=== PATIENT | male | born 1955 | race Caucasian/White ===

== ENCOUNTER → 2016-12-30 | Outpatient (CLI) | payer OTHER ==
[~2016-12-30] MED LIST: ASP81CT PO; CEPH-507 PO; HYDR-3874 PO; MULT-963 PO; OMG1KC PO; RUTI1TAB PO
--- NOTE | 2016-12-30 16:24 | Diagnostic Imaging Report ---
Scrotal ultrasound. INDICATION: Right scrotal swelling and pain. FINDINGS: The right testicle is 4.5 x 3.1 x 3 cm. The left testicle is 4.2 x 2.2 x 2.5 cm. There is a vsyxqnys-vc-subpd right hydrocele with mild debris seen. Arterial waveforms are demonstrated over both testicles. There is slightly more prominent vascularity demonstrated with color Doppler over the right testicle. IMPRESSION: Htfrzkps-bw-tlvrt right-sided hydrocele with minimally prominent vascularity in the right testicle raising question of right-sided orchitis. There is no abscess. No solid mass. Dictated by: Dictated on workstation # [id number]
== END ==
LOC: RAD 10:02
PROVIDERS: ATTEND Nurse Practitioner
DX: N43.3 Hydrocele, unspecified (principal)
CPT/HCPCS: 76870

== ENCOUNTER 2017-02-03 08:22 | Outpatient (CLI) | payer OTHER ==
[~2017-02-03] VITALS: Ht 172.7 cm; Wt 81.6 kg
[~2017-02-03 08:22] MED LIST changes: -CEPH-507 PO; -HYDR-3874 PO; -RUTI1TAB PO
[2017-02-03] MEDS ORDERED: RUTI1TAB PO (09:28)
== END 2017-02-03 09:31 ==
LOC: PREOP 08:22
PROVIDERS: ATTEND Urology
DX: Z01.818 Encounter for other preprocedural examination (principal); N43.3 Hydrocele, unspecified; N45.2 Orchitis

== ENCOUNTER 2017-02-07 06:31 | Day surgery (SDC) | payer OTHER ==
[~2017-02-07] VITALS: Ht 172.7 cm; Wt 81.6 kg
[~2017-02-07 06:31] MED LIST changes: +RUTI1TAB PO
[2017-02-07 07:35] VITALS: BP 151/78
[2017-02-07] MEDS ORDERED: LACTATED RINGERS 1,000 ML IV ONE (07:35)
[2017-02-07] MEDS ORDERED: ceFAZolin 1 GM/NS 50 ML IVPB IV ONE ×2 (07:45)
[2017-02-07] MEDS ORDERED: NEOSPORIN + PAIN RELIEF CREAM 15 GM ONE (07:58)
[2017-02-07] MEDS ORDERED: MIDAZOLAM 2 MG/2 ML (VERSED) VIAL ONE (08:05)
[2017-02-07] MEDS ORDERED: fentaNYL INJECTION 100 MCG/2 ML AMP ONE ×2 (08:05→09:43)
--- NOTE | 2017-02-07 08:05 | Progress Note-Pre Operative ---
Pre-Operative Progress Note H&P Reviewed The H&P was reviewed, patient examined and no changes noted. Date H&P Reviewed: February 07, 2017 Time H&P Reviewed: 08:05 Pre-Operative Diagnosis: RT CHRONIC RECUREENT EPIDIDYMOORCHITIS VERONICA SANABRIA MD February 07, 2017 8:05 am
--- NOTE | 2017-02-07 08:06 | Progress Note-Post Operative ---
Post-Operative Progess Note Surgeon (s)/Spray Painter (s) Surgeon VERONICA SANABRIA MD Spray Painter: N/A Pre-Operative Diagnosis RT CHRONIC RECUREENT EPIDIDYMOORCHITIS AND RT HYDROCELE Post-Operative Diagnosis SAME Post-Op Procedure Note Date of Procedure: February 07, 2017 Name of Procedure Performed: RT ORCHIECTOMY Description of the Procedure: PER DICTATION Findings of the Procedure SAME Anesthesia Type GENERAL Estimated blood loss (mL): LESS THAN 30CC Packing: TIFFANIE DRAIN /# Specimen(s) collected/removed RT TESTIS AND EPIDIDYMIS VERONICA SANABRIA MD February 07, 2017 8:06 am
--- NOTE | 2017-02-07 08:09 | Discharge Inst-Urology ---
Discharge Inst-Urology Discharge Medications New, Converted, or Re-newed RX: RX on Chart Patient Instructions/Follow Up Plan Please make appointment to been seen in office in 2 weeks. Rest till then. to DC Drain tomorrow 9am if no bleeding, call office PRN Tomorrow, may start showers, no bath Next Monday, if no bleeding, may resume ASA Keep bowels soft and moving Ice to scrotum in RR and at home for 6hrs and then PRN Increase oral fluids for 48 hours and then as needed. Diet and Activity as tolerated. If questions or concerns contact your physician Or seek help at emergency department. VERONICA SANABRIA MD February 07, 2017 8:09 am
[2017-02-07] MEDS ORDERED: LACTATED RINGERS 0 ML IV ONE (08:20)
[2017-02-07] MEDS ORDERED: DEXAMETHASONE PF 10 MG/ML (DECADRON) VIAL ONE (08:20)
[2017-02-07] MEDS ORDERED: proPOfol 200 MG/20 ML (DIPRIVAN) VIAL IV ONE (08:20)
[2017-02-07] MEDS ORDERED: ONDANSETRON 4 MG/2 ML (SDV) Z0FRAN ONE (08:20)
[2017-02-07] MEDS ORDERED: SEVOFLURANE (ULTANE) 15 ML INHAL SOLN ONE (08:20)
[2017-02-07] MEDS ORDERED: LIDOCAINE PF 2% 10 ML (XYLOCAINE) AMP ONE (08:20)
[2017-02-07] MEDS ORDERED: LACTATED RINGERS 2,000 ML IV ONE (08:44)
[2017-02-07] MEDS ORDERED: morphine INJ 10 MG/ML 1ML (SYR OR VIAL) ONE (09:26)
[2017-02-07] MEDS ORDERED: fentaNYL INJECTION 100 MCG/2 ML AMP IVP PRN (09:30)
[2017-02-07] MEDS ORDERED: ONDANSETRON 4 MG/2 ML (SDV) Z0FRAN IVP PRN (09:30)
[2017-02-07] MEDS: morphine INJ 10 MG/ML 1ML (SYR OR VIAL) IVP PRN ×2 (09:31→09:37)
[2017-02-07] MEDS ORDERED: CEPH-507 PO (09:51)
[2017-02-07] MEDS ORDERED: HYDR-3874 PO (09:51)
[2017-02-07] MEDS ORDERED: LACTATED RINGERS 1,000 ML IV SCH (10:00)
[2017-02-07 10:05] VITALS: BP 153/83
[2017-02-07] MEDS ORDERED: HYDROcodone/APAP 5 MG/325 MG (LORTAB) TAB PO ONE (10:15)
[2017-02-07] MEDS ORDERED: HYDROcodone/APAP 5 MG/325 MG (LORTAB) TAB ONE (10:17)
[2017-02-07 10:35] VITALS: BP 149/82
[2017-02-07 11:05] VITALS: BP 148/86
--- NOTE | 2017-02-07 11:11 | OPERATIVE REPORT ---
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 OPERATION PERFORMED: Right orchiectomy. ANESTHESIA: General. COMPLICATIONS: None. PROCEDURE: Under satisfactory general anesthesia with the patient in supine position, sterilely prepped and draped in usual sterile fashion. Incision was made in the medial raphe of the scrotum, cut through the right scrotum compartment. Moderate amount of hydrocele fluid was suctioned and testis was delivered in the wound. There was quite a bit of vascularitis all around it and around the spermatic cord. The epididymis showed some chronic inflammation, testicle was not too bad, went ahead and dissected the spermatic cord. The large veins were ligated with 2-0 chromic catgut, the vas as well and then the spermatic cord was cut between peons, 2 proximal and 1 distal and the testicle was sent for pathology. Spermatic cord was suture ligated in 2 positions using 0 chromic catgut. Hemostasis was complete. Inspection of the scrotum wall revealed no bleeding. I still elected to leave a Sony drain, 1/4-inch, brought through a separate stab wound at the bottom of the scrotum, sutured in position with a 3-0 chromic catgut suture. Closure was performed in 2 layers; the dartos with running 3-0 chromic catgut and the skin with interrupted 4-0 Vicryl. Estimated blood loss was less than 30 cc none of which was replaced, dressings, fluff, scrotal support was applied. Needle, sponge, instrument count correct x2. The patient tolerated the procedure and anesthesia well, was sent to recovery room in stable condition. Job ID: [id number] DocumentID: [id number] Dictated Date: 02/07/2017 09:10:35 Cell Technician Date: 02/07/2017 11:11:16 Dictated By: VERONICA SANABRIA MD [facility]
[2017-02-07 12:05] VITALS: BP 148/86
== END 2017-02-07 12:05 | disposition home or self-care (01) ==
LOC: SDC 06:31
PROVIDERS: ATTEND Urology
DX: N45.3 Epididymo-orchitis (principal); N43.3 Hydrocele, unspecified; F17.290 Nicotine dependence, other tobacco product, uncomplicated
CPT/HCPCS: 87081; 88302

== ENCOUNTER 2019-03-05 05:35 | Outpatient (CLI) | payer OTHER ==
[~2019-03-05] VITALS: Ht 172.7 cm; Wt 85.3 kg
[~2019-03-05 05:35] MED LIST changes: +CEPH-507 PO; +HYDR-3870 PO
[2019-03-05] MEDS ORDERED: ASPI-586 PO (13:03)
[2019-03-05] MEDS ORDERED: ATOR20TA66 PO (13:03)
[2019-03-05] MEDS ORDERED: OMG1KC PO (13:03)
[2019-03-05] MEDS ORDERED: MULT-609 PO (13:03)
== END 2019-03-05 13:06 | disposition home or self-care (01) ==
LOC: PREOP 05:35
PROVIDERS: ATTEND Surgery
DX: Z01.818 Encounter for other preprocedural examination (principal)

== ENCOUNTER 2019-03-12 07:50 | Day surgery (SDC) | payer OTHER ==
[~2019-03-12] VITALS: Ht 172.7 cm; Wt 85.3 kg
[~2019-03-12 07:50] MED LIST changes: +ASPI-586 PO; +ATOR20TA66 PO; +MULT-609 PO
--- OUTSIDE RECORDS SUMMARY | 2019-03-12 07:54 | XMS REPORT | Continuity of Care Document ---
Author Organization Unknown Address Unknown Allergies Active Description Code Type Severity Reaction Onset Reported/Identified Relationship to Patient Clinical Status Yes No Known Drug Allergies [id number] Drug Allergy Unknown N/A 07/03/2012 Medications There is no data. Problems Date Dx Coded Attending Type Code Diagnosis Diagnosed By 02/25/2016 DELROY BRICE DO Ot Z01.818 ENCOUNTER FOR OTHER PREPROCEDURAL EXAMIN 02/25/2016 DELROY BRICE DO Ot Z12.11 ENCOUNTER FOR SCREENING FOR MALIGNANT NE 02/25/2016 DELROY BRICE DO Ot Z85.048 PRSNL HX OF MALIG NEOPLM OF RECTUM, RECT 02/29/2016 DELROY BRICE DO Ot Z01.818 ENCOUNTER FOR OTHER PREPROCEDURAL EXAMIN 02/29/2016 DELROY BRICE DO Ot Z12.11 ENCOUNTER FOR SCREENING FOR MALIGNANT NE 02/29/2016 DELROY BRICE DO Ot Z85.048 PRSNL HX OF MALIG NEOPLM OF RECTUM, RECT 03/01/2016 DELROY BRICE DO Ot D12.0 BENIGN NEOPLASM OF CECUM 03/01/2016 DELORY BRICE DO Ot D12.5 BENIGN NEOPLASM OF SIGMOID COLON 03/01/2016 DELROY BRICE DO Ot K57.30 DVRTCLOS OF LG INT W/O PERFORATION OR AB 03/01/2016 DELROY BRICE DO Ot K62.1 RECTAL POLYP 03/01/2016 DELROY BRICE DO Ot K63.5 POLYP OF COLON 03/01/2016 DELROY BRICE DO Ot Z12.11 ENCOUNTER FOR SCREENING FOR MALIGNANT NE 03/01/2016 DELROY BRICE DO Ot Z85.048 PRSNL HX OF MALIG NEOPLM OF RECTUM, RECT 03/04/2016 DELROY BRICE DO Ot D12.0 BENIGN NEOPLASM OF CECUM 03/04/2016 DELROY BRICE DO Ot D12.5 BENIGN NEOPLASM OF SIGMOID COLON 03/04/2016 DELROY BRICE DO Ot K57.30 DVRTCLOS OF LG INT W/O PERFORATION OR AB 03/04/2016 DELROY BRICE DO Ot K62.1 RECTAL POLYP 03/04/2016 DELROY BRICE DO Ot Z12.11 ENCOUNTER FOR SCREENING FOR MALIGNANT NE 03/04/2016 DELROY BRICE DO Ot Z85.048 PRSNL HX OF MALIG NEOPLM OF RECTUM, RECT 12/30/2016 CATARINA MARTIN ANIMAL RIDES MANAGER Ot N43.3 HYDROCELE, UNSPECIFIED 01/02/2017 CATARINA MARTIN ANIMAL RIDES MANAGER Ot N43.3 HYDROCELE, UNSPECIFIED 02/03/2017 DANIELE NAPOLES, VERONICA Marroquin Ot N43.3 HYDROCELE, UNSPECIFIED 02/03/2017 DANIELE NAPOLES, VERONICA Marroquin Ot N45.2 ORCHITIS 02/03/2017 DANIELE NAPOLES, VERONICA Marroquin Ot Z01.818 ENCOUNTER FOR OTHER PREPROCEDURAL EXAMIN 02/07/2017 DANIELE NAPOLES, VERONICA Marroquin Ot F17.290 NICOTINE DEPENDENCE, OTHER TOBACCO PRODU 02/07/2017 DANIELE NAPOLES, VERONICA Marroquin Ot N43.3 HYDROCELE, UNSPECIFIED 02/07/2017 DANIELE NAPOLES, VERONICA Marroquin Ot N45.3 EPIDIDYMO-ORCHITIS 02/08/2017 DANIELE NAPOLES, VERONICA Marroquin Ot N43.3 HYDROCELE, UNSPECIFIED 02/08/2017 DANIELE NAPOLES, VERONICA Marroquin Ot N45.3 EPIDIDYMO-ORCHITIS 02/09/2017 DANIELE NAPOLES, VERONICA Marroquin Ot F17.290 NICOTINE DEPENDENCE, OTHER TOBACCO PRODU 02/09/2017 DANIELE NAPOLES, VERONICA Marroquin Ot N43.3 HYDROCELE, UNSPECIFIED 02/09/2017 DANIELE NAPOLES, VERONICA Marroquin Ot N45.3 EPIDIDYMO-ORCHITIS 02/13/2017 DANIELE NAPOLES, VERONICA Marroquin Ot F17.290 NICOTINE DEPENDENCE, OTHER TOBACCO PRODU 02/13/2017 DANIELE NAPOLES, VERONICA Marroquin Ot N43.3 HYDROCELE, UNSPECIFIED 02/13/2017 DANIELE NAPOLES, VERONICA Marroquin Ot N45.3 EPIDIDYMO-ORCHITIS 02/17/2017 CATARINA MARTIN ANIMAL RIDES MANAGER Ot N43.3 HYDROCELE, UNSPECIFIED 08/03/2018 CATARINA MARTIN APRN Ot N43.3 HYDROCELE, UNSPECIFIED 08/07/2018 CATARINA MARTIN APRN Ot N43.3 HYDROCELE, UNSPECIFIED 08/15/2018 CATARINA MARTIN APRN Ot N43.3 HYDROCELE, UNSPECIFIED 08/21/2018 CATARINA MARTIN APRN Ot N43.3 HYDROCELE, UNSPECIFIED 03/06/2019 SULTAN DELROY DAILY Ot Z01.818 ENCOUNTER FOR OTHER PREPROCEDURAL EXAMIN 03/11/2019 DELROY BRICE DO Ot Z01.818 ENCOUNTER FOR OTHER PREPROCEDURAL EXAMIN Procedures There is no data. Results Test Result Range Methicillin resistant Staphylococcus aureus (MRSA) screening culture - 02/07/17 07:30 Methicillin resistant Staphylococcus aureus (MRSA) screening culture NEG NRG Encounters ACCT No. Visit Date/Time Discharge Status Pt. Type Provider Facility Loc./Unit Complaint [id number] 03/05/2019 05:35:00 03/05/2019 13:06:00 DIS Outpatient DELROY BRICE DO [facility] PREOP COLONOSCOPY [id number] 02/07/2017 06:31:00 02/07/2017 12:05:00 DIS Outpatient VERONICA SANABRIA MD [facility] RECURRING INFECTIONS [id number] 02/03/2017 08:22:00 02/03/2017 09:31:00 DIS Outpatient VERONICA SANABRIA MD [facility] PREOP RIGHT ORCHIECTOMY [id number] 12/30/2016 10:02:00 12/30/2016 23:59:59 CLS Outpatient CATARINA MARTIN APRN [facility] RAD SWOLLEN RT TESTICLE [id number] 03/01/2016 07:26:00 03/01/2016 09:50:00 DIS Outpatient DELROY BRICE DO [facility] HX RECTAL CANCER [id number] 02/29/2016 05:32:00 02/29/2016 09:27:00 DIS Outpatient DELROY BRICE DO [facility] PREOP [id number] 03/12/2019 09:00:00 PEN Preadmit DELROY BRICE DO [facility] ENDO HX RECTAL CANCER/HX POLYPS [id number] 02/09/2016 15:25:00 Document Registration
[2019-03-12] MEDS ORDERED: LACTATED RINGERS 1,000 ML IV STA (08:03)
[2019-03-12] MEDS ORDERED: LACTATED RINGERS 1,000 ML IV ONE (08:16)
[2019-03-12] MEDS ORDERED: PROPOFOL INJECTION 50 ML IV ONE (08:31)
[2019-03-12] MEDS ORDERED: MIDAZOLAM 2 MG/2 ML (VERSED) VIAL ONE (08:31)
[2019-03-12 08:36] VITALS: BP 151/86
--- NOTE | 2019-03-12 09:29 | Progress Note-Post Operative ---
Post-Operative Progess Note Surgeon (s)/Timber Buyer (s) Surgeon DELROY BRICE DO Timber Buyer: na Pre-Operative Diagnosis hx rectal cancer, hx polyps Post-Operative Diagnosis colon polyps Procedure & Operative Findings Date of Procedure 03/12/19 Procedure Performed/Findings colonoscopy with snare polypectomy x 1 and hot bx polypectomy x 1 Anesthesia Type per head bander and liner operator Estimated Blood Loss Estimated blood loss (mL): none Specimens/Packing Specimens Removed appendiceal orifice polyp, cecal polyp DELROY BRICE DO Mar 12, 2019 09:29
--- NOTE | 2019-03-12 09:32 | Discharge Inst-Simple/Standard ---
Discharge Inst-Standard Patient Instructions/Follow Up Plan of Care/Instructions/FU: 2 weeks Michael Activity as Tolerated: Yes Discharge Diet: Regular Diet DELROY BRICE DO Mar 12, 2019 09:32
[2019-03-12 09:40] VITALS: BP 138/76
[2019-03-12 10:10] VITALS: BP 163/96
[2019-03-12 10:20] VITALS: BP 163/96
--- NOTE | 2019-03-12 14:24 | Anesthesia-General Post-Op ---
MAC Patient Condition Mental Status/LOC: Same as Preop Cardiovascular: Satisfactory Nausea/Vomiting: Absent Respiratory: Satisfactory Pain: Controlled Complications: Absent Post Op Complications Complications None Follow Up Care/Instructions Patient Instructions None needed. Anesthesiology Discharge Order Discharge Order Patient is doing well, no complaints, stable vital signs, no apparent adverse anesthesia problems. No complications reported per nursing. JUAN J BAUTISTA CRNA Mar 12, 2019 14:24
--- NOTE | 2019-03-12 16:45 | OPERATIVE REPORT ---
DATE OF SERVICE: 03/12/2019 PREOPERATIVE DIAGNOSES: History of rectal cancer, history of polyps. POSTOPERATIVE DIAGNOSIS: Colon polyps. PROCEDURES PERFORMED: Colonoscopy with snare polypectomy x1, hot biopsy polypectomy x1. SURGEON: Delroy Rodriguez DO. ANESTHESIA: Per MOLDER SETTER. ESTIMATED BLOOD LOSS: None. COMPLICATIONS: None. INDICATIONS: The patient is a 63-year-old male with a history of rectal cancer and polyps. He understands risks and benefits of procedure and wished to proceed with procedure. Consent was signed and on the chart. DESCRIPTION OF PROCEDURE: The patient was taken to the endoscopy suite, placed in left lateral recumbent position. Timeout was performed. Digital rectal exam was performed. There were no palpable polyps, mass or ulcerations. The scope was inserted in the rectum and advanced all the way to the cecum with minimal difficulty. Prep was adequate. Scope was then begun to be slowly retracted back into the cecum. At the appendiceal orifice, a larger polyp was present, which snare polypectomy was performed. This was suctioned as was able to be obtained through the scope. Another polyp was present in the cecum, which hot biopsy polypectomy was performed. Scope was slowly retracted back. There were no other polyps, mass or ulceration in the cecum, ascending, transverse, descending or sigmoid colon. Once in the rectum, scope was retroflexed noting no other pathology. Scope was returned to its normal position, slowly withdrawn to complete. The patient tolerated the procedure well without any complications, taken to recovery room in stable condition. RECOMMENDATIONS: The patient is to follow up on the pathology in 2 weeks in the office. We would recommend repeat colonoscopy in one year to evaluate just to the location and size of the polyp. If he has any issues before that, he should be seen at that time and reevaluated. Job ID: [id number] DocumentID: [id number] Dictated Date: 03/12/2019 10:28:46 Cupola Patcher Helper Date: 03/12/2019 16:44:38 Dictated By: DELROY RODRIGUEZ DO
== END 2019-03-12 10:20 | disposition home or self-care (01) ==
LOC: ENDO 07:50
PROVIDERS: ATTEND Surgery
DX: Z12.11 Encounter for screening for malignant neoplasm of colon (principal); D12.1 Benign neoplasm of appendix; Z85.048 Personal history of other malignant neoplasm of rectum, rectosigmoid junction, and anus; F17.210 Nicotine dependence, cigarettes, uncomplicated; Z79.82 Long term (current) use of aspirin; Z79.899 Other long term (current) drug therapy

== ENCOUNTER 2020-04-01 03:49 | Emergency (ER) | payer OTHER ==
[~2020-04-01] VITALS: Ht 173 cm; Wt 81.8 kg
[2020-04-01] MEDS ORDERED: LIDOCAINE UROJET 2% GEL 10 ML PKG TOP ONE (04:00)
--- NOTE | 2020-04-01 04:05 | ED GU-Male ---
General Chief Complaint: - Urinary Stated Complaint: CAN'T URINATE,DRIPPING BLOOD Source: patient Exam Limitations: no limitations History of Present Illness Date Seen by Provider: Apr 01, 2020 Time Seen by Provider: 03:40 Initial Comments Patient presents to ER by private conveyance with chief complaint he is not available produce any urine since 3:00 yesterday afternoon. The patient was at Nic's office for his quarterly checkup for urinary hesitancy and they did a Mock catheter and withdrew 325 cc of urine. He says the nurse was not very gentle and cause quite a bit of pain as well as some bleeding which he's never had before. Since that time he has not met with urinate and has had some pressure and feeling of need to micturate. He has a history of colorectal cancer as well as testicular cancer both of which were solved by surgery with no radiation therapy. Both in remission. Patient denies fever, abdominal pain, nausea or vomiting. He takes a medication that he thinks is Flomax to keep his urine flowing which he has been taking routinely for years. Dr. Hagen is his primary care provider. He is on aspirin but no blood thinners. He still having some dribbling of blood from the urethra. Allergies and Home Medications Allergies Coded Allergies: No Known Drug Allergies (Unverified , 07/03/12) Home Medications Aspirin 81 Mg Tablet., 81 MG PO DAILY, (Reported) Atorvastatin Calcium 20 Mg Tablet, 20 MG PO HS, (Reported) Patient Home Medication List Home Medication List Reviewed: Yes Review of Systems Review of Systems Constitutional: No chills, No diaphoresis EENTM: No ear discharge, No ear pain Respiratory: No cough, No short of breath Cardiovascular: No chest pain, No edema Gastrointestinal: No abdominal pain, No constipation, No diarrhea, No nausea Genitourinary: see HPI, hematuria, pain Musculoskeletal: No back pain, No joint swelling All Other Systemes Reviewed Negative Unless Noted: Yes Past Ezwwjvm-Abcdky-Xooudh Hx Patient Social History Alcohol Use: Regular Use Alcohol Beverage of Choice: Beer Recreational Drug Use: No Smoking Status: Current Someday Smoker Type Used: Cigars Recent Foreign Travel: No Contact w/Someone Who Travel: No Recent Hopitalizations: No Seasonal Allergies Seasonal Allergies: No Past Medical History Surgeries: Yes (colon-rectal sx, ) Testicular Respiratory: No (possible sleep apnea) Cardiac: No Neurological: No Reproductive Disorders: No Genitourinary: No Gastrointestinal: No (rectal cancer) Musculoskeletal: Yes (joint pain) Endocrine: No HEENT: No Cancer: Yes Rectal What Type of Treatment Did You: Surgical Intervention Psychosocial: No Integumentary: No Blood Disorders: No Physical Exam Vital Signs Vital Signs - First Documented 04/01/20 03:52 Temp 36.7 Pulse 79 Resp 18 B/P (MAP) 174/106 (128) Pulse Ox 97 O2 Delivery Room Air Capillary Refill : Height, Weight, BMI Height: 5'8.00" Weight: 188lbs. 0.0oz. 85.552035fz; 28.6 BMI Method:Stated General Appearance: WD/WN, mild distress HEENT: PERRL/EOMI, pharynx normal Neck: full range of motion, normal inspection Cardiovascular: normal peripheral pulses, regular rate, rhythm Respiratory: lungs clear, normal breath sounds, no respiratory distress, no accessory muscle use Gastrointestinal: normal bowel sounds, non tender, soft Neurologic/Psychiatric: alert, normal mood/affect, oriented x 3 Skin: normal color, warm/dry Progress/Results/Core Measures Suspected Sepsis SIRS Temperature: Pulse: Respiratory Rate: Blood Pressure / Mean: Results/Orders Lab Results Laboratory Tests Test 04/01/20 04:05 Range/Units Urine Color RED H Urine Clarity TURBID Urine pH 7.0 5-9 Urine Specific [place] >=1.030 1.016-1.022 Urine Protein 2+ H NEGATIVE Urine Glucose (UA) NEGATIVE NEGATIVE Urine Ketones NEGATIVE NEGATIVE Urine Nitrite NEGATIVE NEGATIVE Urine Bilirubin 1+ H NEGATIVE Urine Urobilinogen 0.2 < = 1.0 MG/DL Urine Leukocyte Esterase TRACE H NEGATIVE Urine RBC (Auto) 3+ H NEGATIVE Urine RBC TNTC H /HPF Urine WBC 0-2 /HPF Urine Squamous Epithelial Cells NONE /HPF Urine Crystals PRESENT H /LPF Urine Amorphous Sediment FEW AFSANEH PHOSPHATE H /LPF Urine Bacteria FEW H /HPF Urine Casts NONE /LPF Urine Mucus NEGATIVE /LPF Urine Culture Indicated NO My Orders Orders - EARNEST PINA Catheter(Urinary) Insert & Ass (04/01/20 03:52) Lidocaine 2% (Urojet) (Xylocaine Urojet) (04/01/20 04:00) Ua Culture If Indicated (04/01/20 03:58) Medications Given in ED Current Medications Medications Dose Ordered Sig/Autumn Route Start Time Stop Time Status Last Admin Dose Admin Lidocaine HCl 10 ml ONCE ONCE TOP 04/01/20 04:00 04/01/20 04:01 DC 04/01/20 03:58 10 ML Vital Signs/I&O 04/01/20 03:52 Temp 36.7 Pulse 79 Resp 18 B/P (MAP) 174/106 (128) Pulse Ox 97 O2 Delivery Room Air Capillary Refill : Progress Note : Time: 04:05 Progress Note Urojet and Mock catheter placement with leg bag. Follow-up with Dr. Sanabria in the clinic after about 1-2 weeks. Urinalysis with culture if indicated. Departure Impression Primary Impression: Acute urinary retention Disposition: HOME, SELF-CARE Condition: Stable Departure-Patient Inst. Decision time for Depature: 04:37 Referrals: VERONICA SANABRIA MD, JOHN D MD (PCP/Family) Primary Care Physician Patient Instructions: Urinary Retention (DC), Mock Catheter, Male Add. Discharge Instructions: Leave the Mock catheter in place and clean it per the instructions and the handout. During business hours give Dr. Sanabria, urology call for a follow-up appointment. Return to the doctor sooner if you experience fever, nausea, inability to produce urine or other worrisome symptoms. Drink lots of fluids. All discharge instructions reviewed with patient and/or family. Voiced understanding. Work/School Note: Work Release Form Date Seen in the Emergency Department: Apr 01, 2020 Return to Work: Apr 02, 2020 Restrictions: No Restrictions Copy Copies To 1: VERONICA SANABRIA MD, TITUS J Apr 01, 2020 04:05
[2020-04-01] MEDS ORDERED: TMSL.4C (04:09)
[2020-04-01 04:14] LABS: CLARITY,URINE TURBID; COLOR,URINE RED; GLUCOSE, URINE (UA) NEGATIVE (NEGATIVE); KETONES,URINE NEGATIVE (NEGATIVE); LEUKOCYTE ESTERASE ,URINE TRACE (NEGATIVE); NITRITE,URINE NEGATIVE (NEGATIVE); PROTEIN,URINE 2+ (NEGATIVE)
[2020-04-01 04:28] LABS: BACTERIA,URINE FEW /HPF; RBC,URINE TNTC /HPF; WBC,URINE 0-2 /HPF
[2020-04-01 04:29] LABS: AMORPHOUS SEDIMENT,UR FEW AMOR PHOSPHATE /LPF
[2020-04-01 04:40] VITALS: BP 165/86
[2020-04-02 09:03] LABS: BILIRUBIN,URINE 1+ (NEGATIVE)
== END 2020-04-01 04:41 | disposition home or self-care (01) ==
LOC: EDUNIT# 03:49 → ER 03:51
DX: R33.9 Retention of urine, unspecified (principal); F17.290 Nicotine dependence, other tobacco product, uncomplicated; Z85.038 Personal history of other malignant neoplasm of large intestine; Z85.048 Personal history of other malignant neoplasm of rectum, rectosigmoid junction, and anus; Z85.47 Personal history of malignant neoplasm of testis; Z79.82 Long term (current) use of aspirin
CPT/HCPCS: 51702; 81000

== ENCOUNTER 2021-01-12 05:39 | Outpatient (CLI) | payer OTHER ==
[~2021-01-12] VITALS: Ht 172.7 cm; Wt 86.3 kg
[~2021-01-12 05:39] MED LIST changes: +TMSL.4C
[2021-01-12] MEDS ORDERED: GLUC1CAP37 PO (10:49)
[2021-01-12] MEDS ORDERED: MULTIVITAMIN PO (10:49)
[2021-01-12] MEDS ORDERED: FLUORIDE PO (10:49)
[2021-01-12] MEDS ORDERED: OMEG1CAP58 PO (10:49)
[2021-01-12] MEDS ORDERED: BETH50TA2 PO ×2 (10:49)
== END 2021-01-12 11:00 | disposition home or self-care (01) ==
LOC: PREOP 05:39 → EDSTATUS 09:30 → PREOP 11:00
PROVIDERS: ATTEND Surgery
DX: Z01.812 Encounter for preprocedural laboratory examination (principal); Z86.010 Personal history of colon polyps; Z85.048 Personal history of other malignant neoplasm of rectum, rectosigmoid junction, and anus

== ENCOUNTER 2021-01-19 06:49 | Day surgery (SDC) | payer OTHER ==
[~2021-01-19] VITALS: Ht 172.7 cm; Wt 86.3 kg
[~2021-01-19 06:49] MED LIST changes: +BETH50TA2 PO; +FLUORIDE PO; +GLUC1CAP37 PO; +MULTIVITAMIN PO; +OMEG1CAP58 PO
[2021-01-19] MEDS ORDERED: PROPOFOL INJECTION 50 ML IV ONE (07:00)
[2021-01-19] MEDS ORDERED: MIDAZOLAM 2 MG/2 ML (VERSED) VIAL ONE (07:00)
[2021-01-19] MEDS ORDERED: LACTATED RINGERS 1,000 ML IV STA (07:08)
[2021-01-19] MEDS ORDERED: LACTATED RINGERS 1,000 ML IV ONE (07:08)
[2021-01-19 07:28] VITALS: BP 166/86
[2021-01-19 08:40] VITALS: BP 125/67
[2021-01-19 08:45] VITALS: BP_SYST 135; BP_DIAS 69; BP_DIAS 72
--- NOTE | 2021-01-19 08:45 | Progress Note-Post Operative ---
Post-Operative Progess Note Surgeon (s)/Storekeeper Engineering (s) Surgeon DELROY BRICE DO Storekeeper Engineering: na Pre-Operative Diagnosis hx rectal cancer, hx polyps Post-Operative Diagnosis cecal polyps Procedure & Operative Findings Date of Procedure 01/19/21 Procedure Performed/Findings colonoscopy c hot bx polypectomy Anesthesia Type per meter supervisor Estimated Blood Loss Estimated blood loss (mL): none Specimens/Packing Specimens Removed cecal polyps DELROY BRICE DO Jan 19, 2021 08:45
--- NOTE | 2021-01-19 08:47 | Anesthesia-General Post-Op ---
MAC Patient Condition Mental Status/LOC: Same as Preop Cardiovascular: Satisfactory Nausea/Vomiting: Absent Respiratory: Satisfactory Pain: Controlled Complications: Absent Post Op Complications Complications None Follow Up Care/Instructions Patient Instructions None needed. Anesthesiology Discharge Order Discharge Order Patient is doing well, no complaints, stable vital signs, no apparent adverse anesthesia problems. No complications reported per nursing. MARYANN NATH CRNA Jan 19, 2021 08:47
--- NOTE | 2021-01-19 08:47 | Discharge Inst-Simple/Standard ---
Discharge Inst-Standard Patient Instructions/Follow Up Plan of Care/Instructions/FU: 2 weeks Michael Activity as Tolerated: Yes Discharge Diet: Regular Diet DELROY BRICE DO Jan 19, 2021 08:47
[2021-01-19 09:09] VITALS: BP 134/90
[2021-01-19 09:10] VITALS: BP 134/90
--- NOTE | 2021-01-19 14:41 | OPERATIVE REPORT ---
DATE OF SERVICE: 01/19/2021 PREOPERATIVE DIAGNOSIS: History of rectal cancer, history of polyps. POSTOPERATIVE DIAGNOSIS: Cecal polyps. PROCEDURE PERFORMED: Colonoscopy with hot biopsy polypectomy x2 of the cecum. SURGEON: Delroy Rodriguez DO. ANESTHESIA: Per FILLER MACHINE OPERATOR. ESTIMATED BLOOD LOSS: None. COMPLICATIONS: None. INDICATIONS: The patient is a 65-year-old male with a history of rectal cancer and history of polyps. He understands risks and benefits of procedure and wished to proceed. Consent was signed in the chart. DESCRIPTION OF PROCEDURE: The patient was taken to endoscopy suite and placed in a left lateral recumbent position. Timeout was performed. Digital rectal exam was performed. There were no palpable polyps, masses or ulcerations. Scope was inserted in the rectum and advanced all the way to cecum with minimal difficulty. Prep was adequate. In the cecum, there were two small polyps, which hot biopsy polypectomy was performed on both polyps. Scope was then slowly retracted back. There were no polyps, masses or ulcerations within the ascending, transverse, descending and sigmoid colon. Once in the rectum, scope was retroflexed noting no other pathology. Scope was returned to its normal position, slowly withdrawn until completely removed. The patient tolerated the procedure well without any complications. He was taken to recovery room in stable condition. RECOMMENDATIONS: The patient will need repeat colonoscopy in five years. Any issues before that be seen at that time. Job ID: [id number] DocumentID: [id number] Dictated Date: 01/19/2021 08:49:37 Creative Developer Date: 01/19/2021 14:40:09 Dictated By: DELROY RODRIGUEZ DO
== END 2021-01-19 09:12 | disposition home or self-care (01) ==
LOC: ENDO 06:49
PROVIDERS: ATTEND Surgery
DX: Z12.11 Encounter for screening for malignant neoplasm of colon (principal); D12.0 Benign neoplasm of cecum; E78.5 Hyperlipidemia, unspecified; F17.210 Nicotine dependence, cigarettes, uncomplicated; Z85.038 Personal history of other malignant neoplasm of large intestine; Z86.010 Personal history of colon polyps; Z79.02 Long term (current) use of antithrombotics/antiplatelets; Z79.82 Long term (current) use of aspirin; Z79.899 Other long term (current) drug therapy; Z85.048 Personal history of other malignant neoplasm of rectum, rectosigmoid junction, and anus; Z83.3 Family history of diabetes mellitus

== ENCOUNTER → 2021-08-06 | Outpatient (CLI) | payer OTHER ==
--- NOTE | 2021-08-06 12:46 | Diagnostic Imaging Report ---
EXAMINATION: Magnetic resonance imaging of the right knee without intravenous contrast DATE: August 06, 2021. COMPARISON: None. INDICATION: 65-year-old male, right knee twisting injury in December 2020 with persistent right knee pain. TECHNIQUE: Multiplanar, multisequence non contrast enhanced MR imaging was accomplished. FINDINGS: MENISCI: There is an oblique tear involving the body and posterior horn of the medial meniscus. There is 4 mm medial meniscal extrusion. The lateral meniscus is intact. LIGAMENTS AND TENDONS: The anterior and posterior cruciate ligaments are intact. The medial collateral ligament is intact. The iliotibial band, mid third lateral capsular ligament, fibular collateral ligament, biceps femoris tendon and conjoined tendon are intact. The quadriceps tendon and patella ligament are intact. JOINT: There is a 9 x 10 mm full-thickness cartilage defect of the mid to posterior weightbearing portion of the medial femoral condyle. There is an adjacent central osteophyte. There is additional mild thinning and irregularity of the surface of the cartilage of the medial femoral condyle. The lateral compartment cartilage is grossly intact. There are broad areas of near full-thickness cartilage loss of the lateral patellar facet. There is no knee joint effusion, prominent synovitis, or intra-articular body. BONE: There is unremarkable bone marrow signal. Specifically, negative for fracture, osteomyelitis, osteonecrosis, or marrow replacing process. BURSAE AND SOFT TISSUES: There is a small Stiles's cyst. There is nonspecific prepatellar subcutaneous edema. IMPRESSION: 1. Oblique tear involving the body and posterior horn of the medial meniscus with 4 mm medial meniscal extrusion. 2. Intact lateral meniscus. 3. Intact anterior and posterior cruciate ligaments. Additional ligaments and tendons are intact. 4. 9 x 10 mm full-thickness cartilage defect of the medial femoral condyle with additional cartilage thinning and surface irregularity of the medial femoral condyle. There are broad areas of near full-thickness cartilage loss of the patella as well. No knee joint effusion, prominent synovitis, or identified intra-articular body. 5. No acute fracture or bone contusion. 6. Small Stiles's cyst. Dictated by: Dictated on workstation # [id number]
== END ==
LOC: RAD 09:30
PROVIDERS: ATTEND Orthopaedic Surgery
DX: M23.221 Derangement of posterior horn of medial meniscus due to old tear or injury, right knee (principal); M23.231 Derangement of other medial meniscus due to old tear or injury, right knee; M71.21 Synovial cyst of popliteal space [Baker], right knee; M94.8X8 Other specified disorders of cartilage, other site
CPT/HCPCS: 73721

== ENCOUNTER 2021-08-25 05:37 | Outpatient (CLI) | payer OTHER ==
[~2021-08-25] VITALS: Ht 175.3 cm; Wt 84.1 kg
[~2021-08-25 05:37] MED LIST changes: -TMSL.4C; +TMSL.4C PO
[2021-08-25] MEDS ORDERED: ASPI-999 PO (14:16)
== END 2021-08-25 14:17 | disposition home or self-care (01) ==
LOC: PREOP 05:37
PROVIDERS: ATTEND Orthopaedic Surgery
DX: Z01.818 Encounter for other preprocedural examination (principal)

== ENCOUNTER 2021-09-01 06:49 | Day surgery (SDC) | payer OTHER ==
--- NOTE | 2021-08-25 06:52 | HISTORY AND PHYSICAL ---
DATE OF SERVICE: ADMISSION HISTORY AND PHYSICAL This will be for outpatient surgery for right knee arthroscopy on 09/01/2021. HISTORY: The patient is a 65-year-old gentleman with a greater than 1 year history of right knee pain. He reports pain on the medial aspect of his knee with associated catching, locking and swelling. Ultimately, he underwent an MRI, which revealed a posterior horn medial meniscus tear as well as a full-thickness chondral loss in the medial femoral condyle approximately 1 x 1 cm in area. Due to functional impairment and failure to improve with conservative measures, the patient elected to proceed with surgical intervention. REVIEW OF SYSTEMS: No chest pain, no shortness of breath, no dysuria. PAST MEDICAL HISTORY: Rectal cancer, hyperlipidemia. PAST SURGICAL HISTORY: Rectal cancer excision. FAMILY HISTORY: Diabetes. PRIMARY CARE PROVIDER: Dr. Hagen. MEDICATIONS: Fish oil, multivitamin, bethanechol, tamsulosin. ALLERGIES: No known drug allergies. SOCIAL HISTORY: The patient smokes 1 cigar per week and drinks alcohol rarely. PHYSICAL EXAMINATION: GENERAL: The patient is well developed, well nourished, in no acute distress. HEENT: Normocephalic, atraumatic. Pupils are equal, round and reactive to light. Oropharynx is clear. NECK: Supple, with no lymphadenopathy. LUNGS: Clear to auscultation bilaterally. HEART: Regular rate and rhythm. ABDOMEN: Soft, nontender, nondistended. EXTREMITIES: The right knee demonstrates tenderness over his medial joint line. He has pain medially with John's. He has a moderate effusion. Range of motion is 0/0/135. There is no varus valgus laxity. Negative anterior and posterior drawer. IMPRESSION: Right knee medial meniscus tear with associated chondromalacia. PLAN: Right knee arthroscopy with partial medial meniscectomy and chondroplasty. The risks, benefits, options, ramifications and recovery have been discussed at length with the patient. He understands and wishes to proceed. Job ID: [id number] DocumentID: [id number] Dictated Date: 08/16/2021 15:31:54 Apprentice Painter Neckties Date: 08/16/2021 16:16:28 Dictated By: WILMER HUTTON MD
[2021-09-01] VITALS (10 sets, daily range): BP systolic 113–151; BP diastolic 72–91
[~2021-09-01] VITALS: Ht 175.3 cm; Wt 84.1 kg
[~2021-09-01 06:49] MED LIST changes: +ASPI-999 PO
[2021-09-01] MEDS ORDERED: MIDAZOLAM 2 MG/2 ML (VERSED) VIAL ONE (07:18)
[2021-09-01] MEDS ORDERED: fentaNYL INJ 100 MCG/2 ML AMP ONE (07:18)
[2021-09-01] MEDS ORDERED: BUPIVACAINE 0.25% 30 ML (SENSORCAINE) VIAL ONE (07:29)
[2021-09-01] MEDS ORDERED: morphine PF (DURAMORPH) 10 MG/10 ML AMP ONE (07:29)
[2021-09-01] MEDS ORDERED: HYDROcodone/APAP 7.5 MG/325 MG (LORTAB, LORCET PLUS) TABLET PO PRN (07:30)
[2021-09-01] MEDS ORDERED: LACTATED RINGERS 1,000 ML IV PRN (07:30)
[2021-09-01] MEDS ORDERED: ceFAZolin INJECTION 1,000 MG VIAL IV ONE (07:30)
--- NOTE | 2021-09-01 07:33 | Progress Note-Pre Operative ---
Pre-Operative Progress Note H&P Reviewed The H&P was reviewed, patient examined and no changes noted. Date Seen by Provider: Sep 01, 2021 Time Seen by Provider: 07:28 Date H&P Reviewed: Sep 01, 2021 Time H&P Reviewed: 07:11 Pre-Operative Diagnosis: right knee medial meniscus tear and chondromalacia WILMER HUTTON MD Sep 01, 2021 07:33
--- NOTE | 2021-09-01 07:34 | Progress Note-Post Operative ---
Post-Operative Progess Note Surgeon (s)/Installation Drafter (s) Surgeon WILMER HTUTON MD Installation Drafter: Amos Galarza Pre-Operative Diagnosis right knee medial meniscus tear and chondromalacia Post-Operative Diagnosis right knee medial meniscus tear and chondromalacia of medial femoral condyle, medial tibial plateau and patella Procedure & Operative Findings Date of Procedure 09/01/21 Procedure Performed/Findings right knee arthroscopic partial medial meniscectomy and chondroplasty of the medial femoral condyle, medial tibial plateau and patella Anesthesia Type GETA Estimated Blood Loss Estimated blood loss (mL): minimal Specimens/Packing Specimens Removed none Packing: none WILMER HUTTON MD Sep 01, 2021 07:34
[2021-09-01] MEDS ORDERED: ONDANSETRON 4 MG/2 ML (SDV) Z0FRAN ONE (08:52)
[2021-09-01] MEDS ORDERED: SEVOFLURANE (ULTANE) 15 ML INHAL SOLN ONE (08:52)
[2021-09-01] MEDS ORDERED: LIDOCAINE PF 2% 5 ML (XYLOCAINE) VIAL ONE (08:52)
[2021-09-01] MEDS ORDERED: proPOfol 200 MG/20 ML (DIPRIVAN) VIAL IV ONE (08:52)
--- NOTE | 2021-09-01 10:22 | Physical Therapy Ortho Eval ---
PT Orthopedic Evaluation Type of Surgery Knee Scope Prior Level of Function Current Living Status: Spouse Locomotion (Upon Admit): Independent Established Durable Medical Eq: None Subjective Subjective Patient currently rates pain at 2/10 in the right knee. Entry Into Home: Stairs With Railing Steps Into Home: 5 Steps Inside Home: 15 Steps Accessories: Railing Present Other Obstacles: Patient reports they mainly live on the main floor Motor Control Motor Control: Motor Control WNL ROM ROM: WFL, except focal deficit Strength Strength: WFL Transfer SCALE: Activities may be completed with or without assistive devices. 7-Tlcevpqfik-qmgorla completes the activity by him/herself with no assistance from a helper. 5-Set-up or Clean-up Assistance-helper sets up or cleans up; patient completes activity. [place] assists only prior to or following the activity. 4-Supervision or Touching Assistance-helper provides verbal cues and/or touching/steadying and/or contact guard assistance as patient completes act ivity. Assistance may be provided throughout the activity or intermittently. 3-Partial/Moderate Assistance-helper does LESS THAN HALF the effort. [place] lifts, holds or supports trunk or limbs, but provides less than half the effort. 2-Substantial/Maximal Assistance-helper does MORE THAN HALF the effort. [place] lifts or holds trunk or limbs and provides more than half the effort. 5-Xauvgkoua-rljrhd does ALL the effort. Patient does none of the effort to complete the activity. Or, the assistance of 2 or more helpers is required for the patient to complete the activity. If activity was not attempted, code reason: 7-Patient Refused. 9-Not Applicable-not attempted and the patient did not perform the activity before the current illness, exacerbation or injury. 10-Not Attempted due to Environmental Limitations-(lack of equipment, weather restraints, etc.). 88-Not Attempted due to Medical Conditions or Safety Concerns. Transfers (B, C, W/C) (QC): 6 Gait Gait Assistive Device: Crutches Right Lower Extremity: Right Weight Bearing Status RLE: Weight Bearing/Tolerated Gait (QC): 5 Distance (QC): 5=734-28 ft Distance: 50 Gait Level of Assist: 4 Treatment Rendered Treatment: Therapeutic Exercises, Gait Train Assessment/Goals Goal Time Frame: 1 Visit Understands HEP: Yes Safe Ambulation: Yes Plan Treatment Plan: Discharge PT/Family Agrees to Plan: Yes Time Time In: 949 Time Out: 1006 Total Billed Treatment Time: 17 Billed Treatment Time Visit, EARL Mccall PT Sep 01, 2021 10:21
--- NOTE | 2021-09-01 11:04 | Anesthesia-General Post-Op ---
General Patient Condition Mental Status/LOC: Same as Preop Cardiovascular: Satisfactory Nausea/Vomiting: Absent Respiratory: Satisfactory Pain: Controlled Complications: Absent Post Op Complications Complications None Follow Up Care/Instructions Patient Instructions None needed. Anesthesia/Patient Condition Patient Condition Patient is doing well, no complaints, stable vital signs, no apparent adverse anesthesia problems. No complications reported per nursing. JACOBY DIGGS CRNA Sep 01, 2021 11:04
--- NOTE | 2021-09-01 14:15 | OPERATIVE REPORT ---
DATE OF SERVICE: 09/01/2021 PREOPERATIVE DIAGNOSES: 1. Right knee medial meniscus tear. 2. Right knee chondromalacia of the medial femoral condyle. POSTOPERATIVE DIAGNOSES: 1. Right knee medial meniscus tear. 2. Right knee chondromalacia of the medial femoral condyle. 3. Right knee chondromalacia of the medial tibial plateau. 4. Right knee chondromalacia of the patella. PROCEDURES PERFORMED: 1. Right knee arthroscopic partial medial meniscectomy. 2. Right knee arthroscopic chondroplasty of the medial femoral condyle. 3. Right knee arthroscopic chondroplasty of the medial tibial plateau. 4. Right knee arthroscopic chondroplasty of the patella. SURGEON: Ck Hutton MD. BATCH UNLOADER: Amos Moses, who assisted throughout the procedure and closed the incisions. ANESTHESIA: General endotracheal by Gris Jett CRNA. TOURNIQUET TIME: Not applicable. ESTIMATED BLOOD LOSS: Minimal. DRAINS: None. COMPLICATIONS: None. POSTOPERATIVE PLAN: Routine arthroscopy protocol. The patient was transferred to the recovery room awake and stable condition. STATEMENT OF MEDICAL NECESSITY: The patient is a 65-year-old gentleman, who injured his knee nearly a year ago and has had medial knee pain, catching, locking. and swelling since that point. He ultimately underwent an MRI, which revealed a medial meniscus tear. He was tender along his medial joint line. Radiographs revealed mild medial joint space narrowing as well. Due to functional impairment and failure to improve with conservative measures, the patient elected to proceed with surgical intervention. Examination under anesthesia revealed range of motion of 0/0/135 with negative Minal, negative anterior, and posterior drawer. No varus valgus laxity, negative pivot shift. ARTHROSCOPIC FINDINGS: The patella demonstrated grade IV chondral loss superiorly and medially in a 10 x 10 area with surrounding grade III chondral flaps at the periphery. The trochlea demonstrated no significant chondral abnormalities. Medial and lateral gutters were clear. The ACL and PCL were intact. The lateral compartment demonstrated no significant meniscal or chondral pathology. The medial compartment demonstrated complex tear of the posterior horn and body of the medial meniscus involving approximately one half of the posterior horn and body. In addition, there were grade II chondral flaps over the tibial plateau in a 10 x 10 area and grade III chondral flaps over the central portion of the femoral condyle in a 10 x 10 area. PROCEDURE IN DETAIL: After risks and benefits of procedure were discussed and questions were answered, an informed consent was signed and placed on chart. The operative site was confirmed in the preoperative holding area initialed by the surgeon. The patient was then transferred to the operating room. After adequate levels of general endotracheal anesthetic were obtained, a timeout was called confirming the operative site and examination under anesthesia was performed. The right lower extremity was prepped and draped in the usual sterile fashion. The knee joint was injected with 60 mL of fluid and standard inferolateral portal was placed with the arthroscope. Under direct visualization, inferior medial portal was created. The menisci and cruciates were carefully probed with the above findings noted. Then, stable chondral flaps on the patella were debrided with a shaver back to a stable edge. Scope was then redirected into the medial compartment with the unstable chondral flaps in the medial tibial plateau and medial femoral condyle were debrided with shaver back to a stable edge and the posterior horn and body of the medial meniscus were debrided with a shaver and a biter back to a stable edge. This was carefully probed with no further tearing or instability noted. The knee was copiously irrigated. Port sites were closed with 4-0 nylon in a simple interrupted fashion. The knee was injected with Duramorph. The port sites were infiltrated with plain Marcaine. A soft dressing was applied. The patient was transferred to the recovery room awake and in stable condition. Job ID: [id number] DocumentID: [id number] Dictated Date: 09/01/2021 09:01:09 Jewelry Coater Date: 09/01/2021 14:14:17 Dictated By: CK HUTTON MD
== END 2021-09-01 11:13 | disposition home or self-care (01) ==
LOC: SDC 06:49
PROVIDERS: ATTEND Orthopaedic Surgery
DX: S83.241A Other tear of medial meniscus, current injury, right knee, initial encounter (principal); E78.5 Hyperlipidemia, unspecified; F17.210 Nicotine dependence, cigarettes, uncomplicated; Z79.82 Long term (current) use of aspirin; Z79.899 Other long term (current) drug therapy; Z85.048 Personal history of other malignant neoplasm of rectum, rectosigmoid junction, and anus; Z83.3 Family history of diabetes mellitus
CPT/HCPCS: 87081